=== PATIENT | female | born 1995 | race Hispanic/Latino ===

== ENCOUNTER 2020-04-05 07:13 | Inpatient (IN) | payer MEDICAID ==
[~2020-04-05] VITALS: Ht 160 cm; Wt 126.1 kg
[2020-04-06] MEDS ORDERED: AMPICILLIN 2GM+NS 100ML 100 ML IV SCH (17:15)
[2020-04-06] MEDS ORDERED: PROMETHAZINE HCL 25 MG/ML 1ML AMPULE IM PRN (17:15)
[2020-04-06] MEDS ORDERED: EPHEDRINE SULFATE 50 MG/ML AMPULE IVP PRN (17:15)
[2020-04-06] MEDS ORDERED: DINOPROSTONE 10 MG VAGINAL SUPP VG SCH (17:15)
[2020-04-06] MEDS ORDERED: LACTATED RINGERS 500 ML 500 ML IV PRN (17:15)
[2020-04-06] MEDS ORDERED: NALOXONE HCL 0.4 MG/1 ML ML IV PRN (17:15)
[2020-04-06] MEDS ORDERED: ROPIVACAINE 0.2% 100ML VIAL 100 ML EP SCH (17:15)
[2020-04-06] MEDS ORDERED: MEPERIDINE-PF 50 MG/ML SYG IVP PRN (17:15)
[2020-04-06 17:45] LABS: HEMATOCRIT 35.7 % (36-48); MEAN CORPUSCULAR HEMOGLOBIN 30.5 pg (27.0-33.0); MEAN CORPUSCULAR HGB CONC 34.2 g/dL (32.0-36.0); MEAN CORPUSCULAR VOLUME 89.3 fL (79-99); RED CELL DISTRIBUTION WIDTH 13.5 % (11.0-15.5); WHITE BLOOD COUNT (AUTO) 7.8 K/uL (4.8-10.8)
[2020-04-06 17:47] LABS: APPEARANCE,URINE Clear (CLEAR); BILIRUBIN,URINE Negative (NEGATIVE); COLOR,URINE Yellow (YELLOW); GLUCOSE, URINE (UA) Negative (NEGATIVE); KETONES,URINE Negative (NEGATIVE); LEUKOCYTE ESTERASE ,URINE Trace (NEGATIVE); NITRATE,URINE Negative (NEGATIVE); OCCULT BLOOD,URINE Negative (NEGATIVE); PROTEIN,URINE Negative (NEGATIVE); UROBILINOGEN,URINE 0.2 mg/dL (0.2-1.0)
[2020-04-06 17:52] LABS: RBC,URINE 0-1 /HPF (0-1)
[2020-04-06 17:53] LABS: BACTERIA,URINE Few /HPF (None Seen); SQUAMOUS EPITHELIAL CELL,UR Few /HPF (0-2)
[2020-04-06] MEDS: LACTATED RINGERS 1000ML 1,000 ML IV PRN (18:00)
[2020-04-06] MEDS: AMPICILLIN 1GM+NS 50ML 50 ML IV SCH (21:55)
[2020-04-07] MEDS: AMPICILLIN 1GM+NS 50ML 50 ML IV SCH ×3 (02:00→11:33)
[2020-04-07] MEDS ORDERED: OXYTOCIN 10 USP UNITS/ML 20 UNIT in LACTATED RINGERS 1000ML 1,000 ML IV SCH (05:15)
[2020-04-07] MEDS ORDERED: OXYTOCIN-LR 20 UNITS/1000 ML 1,000 ML IV ONE (08:46)
[2020-04-07] MEDS: LACTATED RINGERS 1000ML 1,000 ML IV PRN (12:41)
[2020-04-07] MEDS ORDERED: DIPH,PERTUSS(ACELL),TET VAC/PF 0.5 ML VIAL IM PRN (15:15)
[2020-04-07] MEDS ORDERED: ACETAMINOPHEN 325 MG TAB PO PRN (15:15)
[2020-04-07] MEDS ORDERED: OXYTOCIN-LR 20 UNITS/1000 ML 1,000 ML IV SCH (15:15)
[2020-04-07] MEDS ORDERED: ACETAMINOPHEN-CODEINE 300/30MG TAB PO PRN (15:15)
[2020-04-07] MEDS ORDERED: MEASLES/MUMPS/RUBELLA VACCINE, LIVE 0.5 ML/VIAL SQ PRN (15:15)
[2020-04-07] MEDS ORDERED: LANOLIN 30GM OINTMENT TP PRN (15:15)
[2020-04-07] MEDS ORDERED: BENZOCAINE/LANOLIN/ALOE VERA 60 ML AEROSOL TP PRN (15:15)
[2020-04-07] MEDS ORDERED: WITCH HAZEL 1 PAD TP PRN (15:15)
[2020-04-07 16:54] VITALS: BP 127/59
[2020-04-07] MEDS: IBUPROFEN 600 MG TABLET PO PRN (17:03)
[2020-04-07] MEDS ORDERED: PNV1TABL17 PO (17:49)
[2020-04-07 19:44] VITALS: BP 130/59
[2020-04-07] MEDS: DOCUSATE SODIUM 100 MG CAP PO SCH (21:08)
[2020-04-07 23:13] VITALS: BP 110/68
[2020-04-08 03:23] VITALS: BP 114/66
[2020-04-08 06:54] LABS: HEMATOCRIT 29.5 % (36-48); MEAN CORPUSCULAR HEMOGLOBIN 30.9 pg (27.0-33.0); MEAN CORPUSCULAR HGB CONC 33.9 g/dL (32.0-36.0); RED BLOOD CELL COUNT(AUTO) 3.24 MIL/uL (4.00-5.50); RED CELL DISTRIBUTION WIDTH 13.4 % (11.0-15.5); WHITE BLOOD COUNT (AUTO) 11.1 K/uL (4.8-10.8)
[2020-04-08 07:37] VITALS: BP 120/59
[2020-04-08] MEDS: DOCUSATE SODIUM 100 MG CAP PO SCH (09:26)
[2020-04-08] MEDS: IBUPROFEN 600 MG TABLET PO PRN (09:27)
[2020-04-08 11:11] VITALS: BP 119/66
[2020-04-08] MEDS ORDERED: IBUP-2077 PO (11:16)
[2020-04-08] MEDS ORDERED: DOCU-116 PO (11:17)
--- NOTE | 2020-04-08 11:25 | NUR ---
verbal and written discharge instructions given, informed of the follow up appointment. prescription given. informed to call the doctor for future concerns. pt voiced understanding to all things discussed. Addendum: 04/08/20 at 1139 by ANMOL PRIDE RN Amended: Links added.
[2020-04-08 12:11] LABS: HEPATITIS Bs ANTIGEN SCREEN P Negative (Negative)
--- NOTE | 2020-04-08 14:50 | NUR ---
pt is dismissed in stable condition, brought to private car via wheelchair by abimael Mai pcp Addendum: 04/08/20 at 1459 by NAMOL PRIDE RN Amended: Links added.
== END 2020-04-08 14:50 | disposition home or self-care (01) | DRG 560 ==
LOC: UNDOADMIN 17:47 → LDH 17:47 → WSH 04-07 16:50
PROVIDERS: ADMIT Obstetrics & Gynecology; ATTEND Obstetrics & Gynecology
PROC: 10E0XZZ Delivery of Products of Conception, External Approach (ICD-10-PCS; principal; 2020-04-07)
PROC: 3E033VJ Introduction of Other Hormone into Peripheral Vein, Percutaneous Approach (ICD-10-PCS; 2020-04-07)
PROC: 3E0P7VZ Introduction of Hormone into Female Reproductive, Via Natural or Artificial Opening (ICD-10-PCS; 2020-04-07)
PROC: 10907ZC Drainage of Amniotic Fluid, Therapeutic from Products of Conception, Via Natural or Artificial Opening (ICD-10-PCS; 2020-04-07)
PROC: 0KQM0ZZ Repair Perineum Muscle, Open Approach (ICD-10-PCS; 2020-04-07)
PROC: 3E0234Z Introduction of Serum, Toxoid and Vaccine into Muscle, Percutaneous Approach (ICD-10-PCS; 2020-04-07)
DX: O99.824 Streptococcus B carrier state complicating childbirth (principal); Z37.0 Single live birth; E66.01 Morbid (severe) obesity due to excess calories; Z3A.39 39 weeks gestation of pregnancy; O70.1 Second degree perineal laceration during delivery; O99.214 Obesity complicating childbirth; Z23 Encounter for immunization
CPT/HCPCS: 36415; 76805; 81001; 85027; 86592; 86850; 86900; 86901; 87340; A4351; G0378; J0290; J2175; J2550; J2590; J7120

== ENCOUNTER → 2023-03-02 | Emergency (ER) | payer MEDICAID ==
[~2023-03-02] VITALS: Ht 160 cm; Wt 122.5 kg
[~2023-03-02] MED LIST: DOCU-116 PO; IBUP-2077 PO; PNV1TABL17 PO
[2023-03-02 12:06] VITALS: BP 153/80
[2023-03-02 13:00] LABS: BASOPHILS % (AUTO) 0.2 % (0.0-5.0); HEMATOCRIT 35.2 % (36-48); MEAN CORPUSCULAR HEMOGLOBIN 27.9 pg (27.0-33.0); MEAN CORPUSCULAR HGB CONC 34.4 g/dL (32.0-36.0); MEAN CORPUSCULAR VOLUME 81.3 fL (79-99); MONOCYTES % (AUTO) 7.2 % (3.0-13.0); NEUTROPHILS % (AUTO) 64.5 % (40.0-77.0); PLATELET COUNT (AUTO) 245 K/uL (130-400); RED BLOOD CELL COUNT(AUTO) 4.33 MIL/uL (4.00-5.50); RED CELL DISTRIBUTION WIDTH 13.1 % (11.0-15.5); WHITE BLOOD COUNT (AUTO) 8.2 K/uL (4.8-10.8)
[2023-03-02 13:08] LABS: APPEARANCE,URINE CLOUDY (CLEAR); BILIRUBIN,URINE NEGATIVE (NEGATIVE); COLOR,URINE LIGHT-YELLOW (YELLOW); GLUCOSE, URINE (UA) NEGATIVE (NEGATIVE); KETONES,URINE NEGATIVE (NEGATIVE); LEUKOCYTE ESTERASE ,URINE NEGATIVE Leu/uL (NEGATIVE); NITRATE,URINE NEGATIVE (NEGATIVE); OCCULT BLOOD,URINE LARGE (NEGATIVE); PROTEIN,URINE NEGATIVE (NEGATIVE); UROBILINOGEN,URINE 0.2 mg/dL (0.2-1.0)
[2023-03-02 13:15] LABS: CREATININE 0.5 mg/dL (0.5-1.5); POTASSIUM 3.9 mmol/L (3.5-5.1)
[2023-03-02 13:32] LABS: BACTERIA,URINE RARE /HPF (None Seen); MUCUS,URINE RARE LPF (None Seen); OTHER CASTS, URINE 1 /LPF (None Seen); RBC,URINE 0-1 /HPF (0-1); SQUAMOUS EPITHELIAL CELL,UR FEW /HPF (0-2)
[2023-03-02 13:47] LABS: ALBUMIN 2.9 g/dL (3.5-5.0); TOTAL PROTEIN, SERUM 7.1 g/dL (6.0-8.3)
== END ==
LOC: EDH 12:05
DX: O20.0 Threatened abortion (principal); Z3A.14 14 weeks gestation of pregnancy; Z79.899 Other long term (current) drug therapy
CPT/HCPCS: 36415; 76801; 80053; 81001; 84702; 85025; 86900; 86901